=== PATIENT | male | born 1965 | race Caucasian/White ===

== ENCOUNTER 2017-10-28 15:50 | Observation (INO) | payer BC, SELFPAY ==
--- OUTSIDE RECORDS SUMMARY | 2017-10-28 15:52 | XMS REPORT | Continuity of Care Document ---
:1965 Author Organization [facility] Care Team Providers Name Role Phone DR CARLOS ENRIQUE BERG Admitting Physician DR CARLOS ENRIQUE BERG Attending Physician Hospital Admission Diagnosis Code Admission Diagnosis Date PREDIABETES Social History Element Code Description Smoking Start Date End Date Description Status Code System Smoking Status [id number] Current every day SNOMED-CT smoker Problems No data in the system Medications SNOMED CT Description [id number] Drug Treatment Unknown Allergies No Allergy Data in the System Results No data in the system Vital Signs No data in the system Plan of Care No data in the system Procedures No data in the system Encounters Date Code Diagnosis Status (ICD10) - R7303 PREDIABETES Active Immunizations No data in the system Functional Status No data in the system Hospital Discharge Instructions No data in the system
[2017-10-28] MEDS ORDERED: NA CHLORIDE 0.9% 1,000 ML ONE ×2 (17:16→18:38)
[2017-10-28 17:27] LABS: Absolute Lymphocytes (CBC) 2.3 K/uL (0.7-4.9); Absolute Monocytes 0.7 K/uL (0.1-1.3); Absolute Neutrophil 4.1 K/uL (1.8-8.0); Basophils % 0.4 % (0-1.3); Hematocrit 44.5 % (39.6-49.0); Lymphocytes % 31.6 % (15.3-44.8); MCH 28.5 pg (27.0-35.0); MCV 83.2 fL (80-100); MPV 8.4 fL (7.6-11.3); Monocytes % 9.6 % (3.3-12.3); RBC Red Blood Cell Count 5.35 M/uL (4.33-5.43)
[2017-10-28 17:42] LABS: Albumin 4.3 g/dL (3.4-5.0); Bilirubin Direct 0.2 mg/dL (0-0.2); Bilirubin Total 0.5 mg/dL (0.2-1.0); Potassium 3.5 mmol/L (3.5-5.1)
--- NOTE | 2017-10-28 17:44 | RAD REPORT ---
EXAM DESCRIPTION: CT - Head Brain Wo Cont - 10/28/2017 5:38 pm CLINICAL HISTORY: Syncope COMPARISON: None. TECHNIQUE: Axial 5 mm thick images of the head were obtained without IV contrast. All CT scans are performed using dose optimization technique as appropriate and may include automated exposure control or mA/KV adjustment according to patient size. FINDINGS: No intracranial hemorrhage, mass, edema or shift of mid-line structures. No acute infarcti on changes seen. No abnormal extra-axial fluid collections. Ventricles are normal. Mastoid air cells and visualized portions of the paranasal sinuses are clear. No acute bony findings. IMPRESSION: Negative non-contrast CT head examination.
--- NOTE | 2017-10-28 18:14 | EDPHYS ---
Physician Documentation [facility] Name: Wojciech Jacobs Age: 51 yrs Sex: Male : 1965 Arrival Date: 10/28/2017 Time: 15:54 Bed 13 Private MD: Out, [facility] ED Physician Uriah Denise HPI: 10/28 17:00 This 51 yrs old Male presents to ER via Ambulatory with complaints of pm1 Dizziness, Near Syncope. 17:00 The patient presents with feeling faint. Onset: The symptoms/episode began/occurred 2 pm1 day(s) ago. Context: occurred at work, occurred while the patient was working, just prior to the episode the patient experienced no apparent symptoms. Modifying factors: The symptoms are alleviated by rest. 17:00 Associated signs and symptoms: Pertinent negatives: abdominal pain, chest pain, nausea, pm1 palpitations, shortness of breath, vomiting. Severity of symptoms: in the emergency department the symptoms have resolved. The patient has not experienced similar symptoms in the past. The patient has been recently seen by a physician: the patient's primary care provider, 3 weeks ago for wellness check. Had labs done and all within normal limits. 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 Patient believes that he almost fainted because all he recalls is him sitting on the ground with his coworkers holding him up from behind and another one handing him a bottled water. Patient did not have any chest pain, shortness of breath, or any dizziness prior to syncopal or near syncopal event. Patient was sent home and on Sunday and Sunday, the patient drank a total of two cases of bottled water because he felt that he might have been dehydrated. Patient attempted to work again today but he did not have the energy to pull the cables. He was sent to the ER by his employer for evaluation. 17:00 Patient has no current complaints except for generalized muscle aches. pm1 Historical: - Allergies: 16:23 Motrin (Rash); aj1 16:23 Naproxen (Anaphylaxis); aj1 - Home Meds: 16:23 Lisinopril Oral [Active]; Metformin Oral [Active]; atorvastatin 10 mg oral tab aj1 [Active]; Metoprolol Tartrate Oral [Active]; HCTZ [Active]; - PMHx: 16:23 Hypertension; pre-diabetic; aj1 - Immunization history:: Flu vaccine is up to date. - Social history:: Smoking status: Patient uses tobacco products, smokes one pack cigarettes per day. - Ebola Screening: : Patient denies travel to an Ebola-affected area in the 21 days before illness onset. ROS: 17:00 Constitutional: Negative for fever, chills, and weight loss, Eyes: Negative for injury, pm1 pain, redness, and discharge, ENT: Negative for injury, pain, and discharge, Neck: Negative for injury, pain, and swelling, Cardiovascular: Negative for chest pain, palpitations, and edema, Respiratory: Negative for shortness of breath, cough, wheezing, and pleuritic chest pain, Abdomen/GI: Negative for abdominal pain, nausea, vomiting, diarrhea, and constipation, Back: Negative for injury and pain, : Negative for injury, bleeding, discharge, and swelling, MS/Extremity: Negative for injury and deformity, Skin: Negative for injury, rash, and discoloration, Neuro: Negative for headache, weakness, numbness, tingling, and seizure. Exam: 17:00 Constitutional: This is a well developed, well nourished patient who is awake, alert, pm1 and in no acute distress. Head/Face: Normocephalic, atraumatic. Eyes: Pupils equal round and reactive to light, extra-ocular motions intact. Lids and lashes normal. Conjunctiva and sclera are non-icteric and not injected. Cornea within normal limits. Periorbital areas with no swelling, redness, or edema. ENT: Nares patent. No nasal discharge, no septal abnormalities noted. Tympanic membranes are normal and external auditory canals are clear. Oropharynx with no redness, swelling, or masses, exudates, or evidence of obstruction, uvula midline. Mucous membranes moist. Neck: Trachea midline, no thyromegaly or masses palpated, and no cervical lymphadenopathy. Supple, full range of motion without nuchal rigidity, or vertebral point tenderness. No Meningismus. Chest/axilla: Normal chest wall appearance and motion. Nontender with no deformity. No lesions are appreciated. Cardiovascular: Regular rate and rhythm with a normal S1 and S2. No gallops, murmurs, or rubs. Normal PMI, no JVD. No pulse deficits. Respiratory: Lungs have equal breath sounds bilaterally, clear to auscultation and percussion. No rales, rhonchi or wheezes noted. No increased work of breathing, no retractions or nasal flaring. Abdomen/GI: Soft, non-tender, with normal bowel sounds. No distension or tympany. No guarding or rebound. No evidence of tenderness throughout. Back: No spinal tenderness. No costovertebral tenderness. Full range of motion. Skin: Warm, dry with normal turgor. Normal color with no rashes, no lesions, and no evidence of cellulitis. MS/ Extremity: Pulses equal, no cyanosis. Neurovascular intact. Full, normal range of motion. 17:00 Neuro: Orientation: is normal, Cranial nerves: CN II- XII are normal as tested, Cerebellar function: normal finger to nose testing, Motor: is normal, moves all fours. Vital Signs: 16:23 BP 114 / 64; Pulse 61; Resp 18; Temp 97.4(TE); Pulse Ox 97% on R/A; Weight 128.82 kg aj1 (R); Height 6 ft. 0 in. (182.88 cm) (R); Pain 0/10; 17:16 BP 108 / 64; Pulse 54; Resp 19; Pulse Ox 99% on R/A; rb1 18:15 BP 110 / 58; Pulse 52; Resp 17; Pulse Ox 100% on R/A; rb1 19:11 BP 124 / 72; Pulse 60; Resp 18; Pulse Ox 100% on R/A; Pain 0/10; lp1 16:23 Body Mass Index 38.52 (128.82 kg, 182.88 cm) [facility] MDM: 16:34 Patient medically screened. pm1 18:12 Data reviewed: vital signs. Data interpreted: Pulse oximetry: on room air is 99 %. pm1 Interpretation: normal. Counseling: I had a detailed discussion with the patient and/or guardian regarding: the historical points, exam findings, and any diagnostic results supporting the discharge/admit diagnosis, lab results, radiology results, the need for further work-up and treatment in the hospital. 18:12 Physician consultation: Rolando Kamara DO was contacted at 18:12, regarding admission, pm1 and will see patient in ED. 10/28 16:57 Order name: Basic Metabolic Panel pm1 10/28 16:57 Order name: CBC with Diff pm1 10/28 16:57 Order name: CPK; Complete Time: 17:50 pm1 10/28 16:57 Order name: LFT's; Complete Time: 17:50 pm1 10/28 16:58 Order name: Basic Metabolic Panel; Complete Time: 17:50 EDMS 10/28 16:58 Order name: CBC with Automated Diff; Complete Time: 17:50 EDMS 10/28 16:57 Order name: EKG; Complete Time: 16:58 pm1 10/28 16:57 Order name: EKG - Nurse/Tech; Complete Time: 18:57 pm1 10/28 16:57 Order name: IV Saline Lock; Complete Time: 17:46 pm1 10/28 16:58 Order name: CT Head Brain wo Cont; Complete Time: 17:50 pm1 10/28 19:17 Order name: Urine Dipstick--Ancillary (enter results) 10/28 19:21 Order name: Urine Dipstick-Ancillary; Complete Time: 20:25 EDMS 10/28 16:57 Order name: Labs collected and sent; Complete Time: 17:46 pm1 10/28 16:57 Order name: Urine Dipstick-Ancillary (obtain specimen); Complete Time: 19:12 pm1 Administered Medications: 17:35 Drug: NS 0.9% 1000 ml Route: IV; Rate: 1000 ml; Site: right antecubital; rb1 18:40 Follow up: IV Status: Completed infusion rb1 18:35 Drug: NS 0.9% 1000 ml Route: IV; Rate: 1000 ml; Site: right antecubital; rb1 20:19 Follow up: IV Status: Completed infusion; IV Intake: 1000ml lp1 Disposition: 10/28/17 18:13 Hospitalization ordered by Rolando Kamara for Observation. Preliminary diagnosis are Acute kidney injury, Dehydration, Rhabdomyolysis. - Bed requested for Telemetry/MedSurg (observation). - Status is Observation. lp1 - Condition is Stable. - Problem is new. - Symptoms have improved. UTI on Admission? No Addendum: 11/06/2017 08:26 Co-signature as Attending Physician, Uriah Denise MD. r n Signatures: Dispatcher [employer] Mari Dubose RN RN [email or web address] Olga Bradley RN RN kl Uriah Denise MD MD rn Pena, Laura, RN RN lp1 Marcela Pierce, RN RN rb1 Scott Fuentes, LEANDRA FACILITATOR pm1 Corrections: (The following items were deleted from the chart) 10/28 19:49 18:13 Hospitalization Ordered by Rolando Kamara DO for Observation. Preliminary kl diagnosis is Acute kidney injury; Dehydration; Rhabdomyolysis. Bed requested for Telemetry/MedSurg (observation). Status is Observation. Condition is Stable. Problem is new. Symptoms have improved. UTI on Admission? No. pm1 21:02 19:49 10/28/2017 18:13 Hospitalization Ordered by Rolando Kamara DO for Observation. lp1 Preliminary diagnosis is Acute kidney injury; Dehydration; Rhabdomyolysis. Bed requested for Telemetry/MedSurg (observation). Status is Observation. Condition is Stable. Problem is new. Symptoms have improved. UTI on Admission? No. kl
--- NOTE | 2017-10-28 18:14 | ER ---
Nurse's Notes [facility] Name: Wojciech Jacobs Age: 51 yrs Sex: Male : 1965 Arrival Date: 10/28/2017 Time: 15:54 Bed 13 Private MD: Out, [facility] Diagnosis: Acute kidney injury;Dehydration;Rhabdomyolysis Presentation: 10/28 16:18 Presenting complaint: Patient states: He has a syncopal episode on Sunday. He was at [facility] [employer] work and then next thing he knew he was sitting on the ground with a co-worker helping him up and has been feeling light headed since then. Denies CP, SOB, palpitations. Transition of care: patient was not received from another setting of care. Onset of symptoms was October 26, 2017. Risk Assessment: Do you want to hurt yourself or someone else? Patient reports no desire to harm self or others. Initial Sepsis Screen: Does the patient meet any 2 criteria? No. Patient's initial sepsis screen is negative. Does the patient have a suspected source of infection? No. Patient's initial sepsis screen is negative. Care prior to arrival: None. 16:18 Method Of Arrival: Ambulatory [facility] 16:18 Acuity: BRIGITTE 3 aj1 Triage Assessment: 16:23 General: Appears in no apparent distress. comfortable, Behavior is calm, cooperative, aj1 appropriate for age. Pain: Denies pain. Neuro: Level of Consciousness is awake, alert, obeys commands. Cardiovascular: Denies chest pain, palpitations, shortness of breath, Patient's skin is warm and dry. Respiratory: Airway is patent Respiratory effort is even, unlabored, Respiratory pattern is regular, symmetrical. Historical: - Allergies: 16:23 Motrin (Rash); aj1 16:23 Naproxen (Anaphylaxis); aj1 - Home Meds: 16:23 Lisinopril Oral [Active]; Metformin Oral [Active]; atorvastatin 10 mg oral tab aj1 [Active]; Metoprolol Tartrate Oral [Active]; HCTZ [Active]; - PMHx: 16:23 Hypertension; pre-diabetic; aj1 - Immunization history:: Flu vaccine is up to date. - Social history:: Smoking status: Patient uses tobacco products, smokes one pack cigarettes per day. - Ebola Screening: : Patient denies travel to an Ebola-affected area in the 21 days before illness onset. Screenin:30 Abuse screen: Denies threats or abuse. Nutritional screening: No deficits noted. rb1 Tuberculosis screening: No symptoms or risk factors identified. Fall Risk None identified. Assessment: 16:30 General: Appears in no apparent distress. comfortable, obese, Behavior is calm, rb1 cooperative, Denies fever. Pain: Complains of pain in base of the skull Pain currently is 2 out of 10 on a pain scale. Neuro: Level of Consciousness is awake, alert, obeys commands, Oriented to person, place, time, situation, Reports headache base of skull. Cardiovascular: Capillary refill < 3 seconds is brisk in bilateral fingers. Respiratory: Airway is patent Respiratory effort is even, unlabored, Respiratory pattern is regular, symmetrical. GI: Reports nausea. : No signs and/or symptoms were reported regarding the genitourinary system. Derm: Skin is pink, warm \T\ dry. Musculoskeletal: Range of motion: intact in all extremities. 17:10 Reassessment: Patient appears in no apparent distress at this time. No changes from rb1 previously documented assessment. 18:20 Reassessment: Patient appears in no apparent distress at this time. Patient and/or rb1 family updated on plan of care and expected duration. Pain level reassessed. Patient is alert, oriented x 3, equal unlabored respirations, skin warm/dry/pink. Dr. Kamara is at pt. bedside. 19:11 Reassessment: Patient is alert, oriented x 3, equal unlabored respirations, skin lp1 warm/dry/pink. Patient aware of pending admission Patient states feeling better. 20:25 Reassessment: Ultrasound at bedside. lp1 Vital Signs: 16:23 BP 114 / 64; Pulse 61; Resp 18; Temp 97.4(TE); Pulse Ox 97% on R/A; Weight 128.82 kg aj1 (R); Height 6 ft. 0 in. (182.88 cm) (R); Pain 0/10; 17:16 BP 108 / 64; Pulse 54; Resp 19; Pulse Ox 99% on R/A; rb1 18:15 BP 110 / 58; Pulse 52; Resp 17; Pulse Ox 100% on R/A; rb1 19:11 BP 124 / 72; Pulse 60; Resp 18; Pulse Ox 100% on R/A; Pain 0/10; lp1 16:23 Body Mass Index 38.52 (128.82 kg, 182.88 cm) aj1 ED Course: 15:54 Patient arrived in ED. sb2 15:54 Out, of Town is Private Physician. sb2 16:21 Triage completed. aj1 16:23 Arm band placed on Patient placed in an exam room. aj1 16:26 Scott Fuentes NP is PHCP. pm1 16:26 Uriah Denise MD is Attending Physician. pm1 16:30 Patient has correct armband on for positive identification. Bed in low position. Call rb1 light in reach. Side rails up X 1. Pulse ox on. NIBP on. 16:41 Marcela Pierce, CAROLINE is Primary Nurse. rb1 17:35 Initial lab(s) drawn, by me, sent to lab. Inserted saline lock: 20 gauge in right em1 antecubital area, using aseptic technique. Blood collected. 17:38 CT Head Brain wo Cont In Process Unspecified. EDMS 17:38 CT completed. Patient tolerated procedure well. Patient moved back from CT. bq 18:12 Rolando Kamara DO is Hospitalizing Provider. pm1 19:00 Report given to CAROLINE Gaines. rb1 19:11 Urine collected: clean catch specimen, clear. lp1 19:12 No provider procedures requiring assistance completed. Patient admitted, IV remains in lp1 place. Administered Medications: 17:35 Drug: NS 0.9% 1000 ml Route: IV; Rate: 1000 ml; Site: right antecubital; rb1 18:40 Follow up: IV Status: Completed infusion rb1 18:35 Drug: NS 0.9% 1000 ml Route: IV; Rate: 1000 ml; Site: right antecubital; rb1 20:19 Follow up: IV Status: Completed infusion; IV Intake: 1000ml lp1 Intake: 20:19 IV: 1000ml; Total: 1000ml. lp1 Outcome: 18:13 Decision to Hospitalize by Provider. pm1 19:12 Condition: stable lp1 19:12 Instructed on the need for admit. 20:23 Admitted to Tele accompanied by nurse, via wheelchair, room 419, with chart, Report lp1 called to Aruna Prescott LVN 21:02 Patient left the ED. lp1 Signatures: Dispatcher [employer] Mari Dubose RN RN aj1 Ruthann Carroll Eric em1 Liana Hemphill RN RN lp1 Marcela Pierce RN RN rb1 Scott Fuentes, WORKERS' COMPENSATION CLAIMS SUPERVISOR WORKERS' COMPENSATION CLAIMS SUPERVISOR pm1 Asuncion Barraza sb2 Corrections: (The following items were deleted from the chart) 20:44 20:43 Reassessment: Ultrasound at bedside lp1 lp1
[2017-10-28] MEDS ORDERED: ACETAMINOPHEN 500 MG TAB PO PRN (18:30)
[2017-10-28] MEDS ORDERED: TRAMADOL HCL 50 MG TAB PO PRN (18:30)
[2017-10-28] MEDS ORDERED: ONDANSETRON 4 MG/2 ML VIAL IV PRN (18:30)
--- NOTE | 2017-10-28 18:43 | P.HP ---
Certification for Inpatient Patient admitted to: Observation With expected LOS: <2 Midnights Patient will require the following post-hospital care: None Practitioner: I am a practitioner with admitting privileges, knowledge of patient current condition, hospital course, and medical plan of care. Services: Services provided to patient in accordance with Admission requirements found in Title 42 Section 412.3 of the Code of Federal Regulations Patient History Date of Service: 10/28/17 Primary Care Provider: YESSI Garrido Reason for admission: Fatigue, presyncope History of Present Illness: 51-year-old male presented emergency room with fatigue and presyncope. Patient reports a history of diabetes, hypertension, hyperlipidemia and tobacco abuse. Patient takes multiple medications including metformin, lisinopril, hydrochlorothiazide, Lipitor and metoprolol. 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 He reports fatigue. On Sunday he was lifting heavy equipment on the boat that he works on. He had been working very hard. He felt like he was going to faint. He apparently sat down. He does not recall the couple of seconds while sitting down. His coworkers were asking if he was okay. He recalls telling his coworkers that he was okay. He did not fall or hurt himself. His coworkers ask if he wanted to get off the boat to get evaluated. He did not want to go. He decided to stay. He decided to rest. He rested for about 6 hr. He drank plan of fluids. The following day he worked. He did feel little bit tired. He reports hydrating with Gatorade. Today he was at work felt more lightheaded and fatigue. Some muscle cramping was noted. He was doing a job that usually takes him about 10 min but it was taking him more time and required more help. That is when he was told to stop and go to the emergency room for evaluation. In the ER he was evaluated. Initial blood pressure was slightly low with a systolic around 100-110. Bicarb 19, BUN of 77, creatinine 3.5 with a GFR of 19. Glucose 91. AST 39. CPK was elevated at 701. CT head was unremarkable. Patient was moving appropriately. Due to the nature the findings the patient was admitted for observation. He was given IV fluids in the emergency room. When I saw the patient ER, appeared stable. He went to go home. He understand the risks but eventually decided to stay. He reports that he last saw his PCP about 3 weeks ago. He had normal lab at that time. He recalls his A1c being about 6.4. - Past Medical/Surgical History Diabetic: Yes -: Diabetes mellitus type 2 -: Hypertension -: Hyperlipidemia -: Tobacco abuse Past Surgical History: Patient denies surgical history Psychosocial/ Personal History: The patient is . He has 1 child. He works on a boat - Family History Father -: Hypertension Mother -: Diabetes, Stroke - Social History Smoking Status: Heavy Tobacco smoker (>10 cigarettes/day) Counseled patient to stop smoking for: less than 10 minutes Smoking therapy provided: Yes Patient receptive to therapy: No Alcohol use: No CD- Drugs: No Caffeine use: Yes Place of Residence: Home Review of Systems General: Weakness, Malaise, As per HPI Eyes: Unremarkable ENT: Unremarkable Respiratory: As per HPI Cardiovascular: Light Headedness, As per HPI Gastrointestinal: Nausea, As per HPI Genitourinary: Unremarkable Musculoskeletal: As per HPI Integumentary: Unremarkable Neurological: Weakness, As per HPI Lymphatics: Unremarkable Physical Examination - Physical Exam General: Alert, In no apparent distress, Oriented x3, Cooperative HEENT: Atraumatic, Normocephalic, PERRLA, Other (Dry mucous membranes) Neck: Supple, No Thyromegaly Respiratory: Clear to auscultation bilaterally, Normal air movement Cardiovascular: Normal pulses, Regular rate/rhythm Gastrointestinal: Normal bowel sounds, Soft and benign, Non-distended, No tenderness, No masses, No rebound, No guarding Musculoskeletal: No contractures, No erythema, No tenderness, No warmth Integumentary: No tenderness/swelling, No erythema, No warmth, No cyanosis Neurological: Normal speech, Normal strength at 5/5 x4 extr, Normal tone, Normal affect Lymphatics: No axilla or inguinal lymphadenopathy - Studies Laboratory Data (last 24 hrs) 10/28/17 17:15: WBC 7.2, Hgb 15.2, Hct 44.5, Plt Count 277 10/28/17 17:15: Sodium 137, Potassium 3.5, BUN 77 H, Creatinine 3.50 H, Glucose 91, Total Bilirubin 0.5, AST 39 H, ALT 50, Alkaline Phosphatase 109 Assessment and Plan - Problems (Diagnosis) (1) Pre-syncope Current Visit: Yes Status: Acute Plan: Presyncope, fatigue likely from rhabdomyolysis and dehydration. Acute renal injury noted likely compromise from JOHAN-inhibitor, hydrochlorothiazide and metformin. Will hold all of these medications. Will provide IV fluids. Will reassess tomorrow. Will monitor CPK. Will check echocardiogram, carotid Doppler. CT of the head unremarkable. Will also order renal ultrasound. Will adjust blood pressure medication. Will provide sliding scale. Anticipate improvement with hydration. Likely discharge tomorrow. (2) Dehydration Current Visit: Yes Status: Acute Plan: Continue with IV fluid hydration. Will monitor closely. (3) Rhabdomyolysis Current Visit: Yes Status: Acute Plan: Likely from dehydration. Will continue with IV fluids. Will reassess tomorrow. Qualifiers: Rhabdomyolysis type: non-traumatic Qualified Code(s): M62.82 - Rhabdomyolysis (4) Acute renal injury Current Visit: Yes Status: Acute Plan: Likely from rhabdomyolysis and dehydration. Continue as above. Will check renal ultrasound. Will hold JOHAN-inhibitor, diuretic therapy and metformin. (5) Hypertension Current Visit: Yes Status: Chronic Plan: We will hold hydrochlorothiazide, lisinopril. Will decrease metoprolol. Will monitor and adjust appropriately. Qualifiers: Hypertension type: essential hypertension Qualified Code(s): I10 - Essential (primary) hypertension (6) Diabetes mellitus Current Visit: Yes Status: Chronic Plan: Patient reports recent A1c of 6.4. Will provide sliding scale. Will hold metformin due to rhabdomyolysis and acute renal injury. Qualifiers: Diabetes mellitus type: type 2 Diabetes mellitus dress designer insulin use: without dress designer use Diabetes mellitus complication status: with other specified complication Qualified Code(s): E11.69 - Type 2 diabetes mellitus with other specified complication (7) Hyperlipidemia Current Visit: Yes Status: Chronic Plan: Will hold Lipitor at this time. Will check fasting lipid panel. Qualifiers: Hyperlipidemia type: unspecified Qualified Code(s): E78.5 - Hyperlipidemia , unspecified (8) Tobacco abuse Current Visit: Yes Status: Chronic Plan: Will provide tobacco cessation. Patient may require nicotine patch. Discharge Plan: Home Plan to discharge in: 24 Hours - Advance Directives Does patient have a Living Will: No Does patient have a Durable POA for Healthcare: No - Code Status/Comfort Care Code Status Assessed: Yes Time Spent Managing Pts Care (In Minutes): 55
[2017-10-28 19:21] LABS: Urine Blood NEGATIVE (NEG); Urine Glucose NEGATIVE (NEG); Urine Protein NEGATIVE (NEG); Urine pH 5.5 (5.0-7.0)
[2017-10-28] MEDS: INSULIN -REGULAR HUMAN 50 UNIT/0.5 ML ML SQ SCH (21:00)
[2017-10-28] MEDS: PANTOPRAZOLE 40MG TABLET PO SCH (21:41)
[2017-10-28] MEDS: METOPROLOL TAR 25 MG TAB PO SCH (21:42)
[2017-10-28] MEDS: ENOXAPARIN 30 MG/0.3 ML SQ SCH (21:45)
[2017-10-28] MEDS: NA CHLORIDE 0.9% 1,000 ML IV SCH (21:45)
[2017-10-28 21:47] VITALS: BMI 36.5
--- NOTE | 2017-10-28 22:45 | RAD REPORT ---
EXAM DESCRIPTION: US - Renal Ultrasound-Complete - 10/28/2017 9:03 pm CLINICAL HISTORY: Acute renal failure COMPARISON: None. FINDINGS: The right kidney measures 11.9 x 6.1 x 6.1 cm. The left kidney measures 11.1 x 5.0 x 5.7 cm. Renal cortical thickness and echogenicity are normal. No hydronephrosis. In the upper pole right kidney a 2.6 centimeter oval hypoechoic mass is present. Detail is somewhat limited by body habitus. Benign cyst is the most likely etiology. No bladder wall thickening or mass. No intraluminal stone or mass. IMPRESSION: No hydronephrosis or suspicious renal mass. A 2.6 cm oval hypoechoic mass upper pole right kidney is most likely a simple cyst.
--- NOTE | 2017-10-28 22:45 | RAD REPORT ---
EXAM DESCRIPTION: JANE Grimes CP - 10/28/2017 9:03 pm CLINICAL HISTORY: Syncope COMPARISON: None. TECHNIQUE: Real-time sonographic evaluation of both carotid systems was performed. Grayscale and Dop pler interrogation was performed with waveform tracing bilaterally. FINDINGS: Normal high resistance waveforms are noted in both external carotid arteries. The common c arotid arteries and internal carotid arteries show normal low resistance waveforms. Mild bulb plaquing changes are present. No visual evidence for significant luminal narrowing. Peak sy stolic and end diastolic velocity values and the ICA/CCA ratios are in the non-hemodynamically signif icant range. Antegrade flow seen in both vertebral arteries. Velocity values and ratios were recorded and are retained in the patient's imaging records. IMPRESSION: No significant atherosclerotic changes noted. No evidence of a hemodynamically significant stenosis.
[2017-10-29] MEDS: NA CHLORIDE 0.9% 1,000 ML IV SCH (03:03)
[2017-10-29 05:01] LABS: Absolute Monocytes 0.6 K/uL (0.1-1.3); Absolute Neutrophil 2.6 K/uL (1.8-8.0); Basophils % 0.6 % (0-1.3); Hematocrit 39.1 % (39.6-49.0); Lymphocytes % 36.4 % (15.3-44.8); MCH 28.6 pg (27.0-35.0); MPV 8.5 fL (7.6-11.3); Monocytes % 11.5 % (3.3-12.3); RBC Red Blood Cell Count 4.65 M/uL (4.33-5.43)
[2017-10-29 05:37] LABS: ALT/SGPT 42 U/L (12-78); AST/SGOT 34 U/L (15-37); Albumin 3.6 g/dL (3.4-5.0); Alkaline Phosphatase 91 U/L (45-117); BUN Blood Urea Nitrogen 68 mg/dL (7-18); Bicarbonate 21 mmol/L (21-32); Bilirubin Total 0.3 mg/dL (0.2-1.0); Creatine Phosphokinase 507 U/L (39-308); Glucose Level 128 mg/dL (74-106); HDL Cholesterol 26 mg/dL (40-60); LDL Cholesterol, Calculated ND (<130); Magnesium 2.4 mg/dL (1.8-2.4); Potassium 3.6 mmol/L (3.5-5.1); Protein, Total 6.5 g/dL (6.4-8.2); Sodium Level 143 mmol/L (136-145)
--- NOTE | 2017-10-29 05:41 | EKG ---
Test Date: 2017-10-28 Test Time: 17:07:58 Systems Technician: MORIAH MEASUREMENT RESULTS: Intervals: Rate: 52 TN: 172 QRSD: 102 QT: 428 QTc: 398 [place]: P: 39 TN: 172 QRS: 41 T: 35 INTERPRETIVE STATEMENTS: Sinus bradycardia Otherwise normal ECG No previous ECG available for comparison Electronically Signed On 10-29-17 05:40:41 CDT by Shayan Curiel
[2017-10-29] MEDS: METOPROLOL TAR 25 MG TAB PO SCH ×2 (06:08→17:34)
[2017-10-29 06:20] LABS: LDL, Direct 101 mg/dL (100-129)
[2017-10-29] MEDS ORDERED: POTASSIUM 25 MEQ EFFERV TAB PO ONE (06:30)
[2017-10-29] MEDS: INSULIN -REGULAR HUMAN 50 UNIT/0.5 ML ML SQ SCH ×4 (07:30→20:11)
[2017-10-29] MEDS: PANTOPRAZOLE 40MG TABLET PO SCH (09:55)
[2017-10-29] MEDS: NACHLORIDE 0.45% 1,000 ML IV SCH ×4 (09:56→20:16)
[2017-10-29] MEDS: ENOXAPARIN 30 MG/0.3 ML SQ SCH (09:56)
--- NOTE | 2017-10-29 10:30 | P.PN ---
Subjective Date of Service: 10/29/17 Primary Care Provider: YESSI Garrido Chief Complaint: Fatigue, presyncope Subjective: Improving (Patient feels better. Patient desires to go home.) Physical Examination - Vital Signs Temperature: 97.6 F Blood Pressure: 126/65 Pulse: 59 Respirations: 18 Pulse Ox (%): 98 - Physical Exam General: Alert, In no apparent distress, Oriented x3, Cooperative HEENT: Atraumatic Neck: Supple Respiratory: Clear to auscultation bilaterally, Normal air movement Cardiovascular: Normal pulses, Regular rate/rhythm Gastrointestinal: Normal bowel sounds, Soft and benign, Non-distended, No tenderness, No masses, No rebound, No guarding Musculoskeletal: No erythema, No tenderness, No warmth Integumentary: No tenderness/swelling, No erythema, No warmth, No cyanosis Neurological: Normal speech, Normal strength at 5/5 x4 extr, Normal tone, Normal affect Lymphatics: No axilla or inguinal lymphadenopathy - Studies Laboratory Data (last 24 hrs) 10/28/17 17:15: WBC 7.2, Hgb 15.2, Hct 44.5, Plt Count 277 10/28/17 17:15: Sodium 137, Potassium 3.5, BUN 77 H, Creatinine 3.50 H, Glucose 91, Total Bilirubin 0.5, AST 39 H, ALT 50, Alkaline Phosphatase 109 Medications List Reviewed: Yes Assessment & Plan - Problems (Diagnosis) (1) Pre-syncope Onset Date: 10/29/17 Current Visit: Yes Status: Acute Plan: Presyncope, fatigue likely from rhabdomyolysis and dehydration. Acute renal injury noted likely compromised from JOHAN-inhibitor, hydrochlorothiazide and metformin. Will continue to hold all of these medications. Will continue with IV fluids. Renal ultrasound shows 2.6 cm right upper lobe cysts likely benign. Patient feels better. Carotid Doppler negative. Renal function still compromise. Will recheck BMP later today. Consider discharge today or tomorrow. Likely tomorrow if no significant improvement in renal function. Patient overall improved. I will turn the service over to Dr. Nuñez tomorrow. I will go over the plan of care with her. (2) Dehydration Onset Date: 10/29/17 Current Visit: Yes Status: Acute Plan: Continue with IV fluid hydration. Will monitor closely. (3) Rhabdomyolysis Onset Date: 10/29/17 Current Visit: Yes Status: Acute Plan: Likely from dehydration. This has improved with IV fluids. Will continue to monitor Qualifiers: Rhabdomyolysis type: non-traumatic Qualified Code(s): M62.82 - Rhabdomyolysis (4) Acute renal injury Onset Date: 10/29/17 Current Visit: Yes Status: Acute Plan: Likely from rhabdomyolysis and dehydration. Continue with IV fluids. Will continue to hold JOHAN-inhibitor, metformin and diuretic therapy. Possible discharge later today if renal function improved. But likely home tomorrow (5) Hypertension Onset Date: 10/29/17 Current Visit: Yes Status: Chronic Plan: Will continue to hold hydrochlorothiazide, lisinopril. Continue with metoprolol. Blood pressure controlled. Qualifiers: Hypertension type: essential hypertension Qualified Code(s): I10 - Essential (primary) hypertension (6) Diabetes mellitus Onset Date: 10/29/17 Current Visit: Yes Status: Chronic Plan: Patient reports recent A1c of 6.4. Will provide sliding scale. Will hold metformin due to rhabdomyolysis and acute renal injury. Qualifiers: Diabetes mellitus type: type 2 Diabetes mellitus snf insulin use: without snf use Diabetes mellitus complication status: with other specified complication Qualified Code(s): E11.69 - Type 2 diabetes mellitus with other specified complication (7) Hyperlipidemia Onset Date: 10/29/17 Current Visit: Yes Status: Chronic Plan: Will hold Lipitor at this time. Patient likely requires Lovaza and fenofibrate instead of Lipitor at discharge. Qualifiers: Hyperlipidemia type: unspecified Qualified Code(s): E78.5 - Hyperlipidemia , unspecified (8) Tobacco abuse Onset Date: 10/29/17 Current Visit: Yes Status: Chronic Plan: Will provide tobacco cessation. Patient may require nicotine patch. Discharge Plan: Home Plan to discharge in: 24 Hours Time Spent Managing Pts Care (In Minutes): 55
--- NOTE | 2017-10-29 11:28 | ECHO ---
HEIGHT: 6 ft 2 in WEIGHT: 284 lb 9.6 oz DATE OF STUDY: 10/29/[address]: Rolando Kamara DO 2-DIMENSIONAL: YES M.MODE: YES DOPPLER: YES COLOR FLOW: YES TDS: NO PORTABLE: NO DEFINITY: NO BUBBLE STUDY: NO DIAGNOSIS: PRESYNCOPE CARDIAC HISTORY: CATHERIZATION: SURGERY: PROSTHETIC VALVE: PACEMAKER: MEASUREMENTS (cm) DIASTOLIC (NORMALS) SYSTOLIC (NORMALS) IVSd 1.1 (0.6-1.2) LA Diam 4.4 (1.9-4.0) LVEF 54% LVIDd 4.9 (3.5-5.7) LVIDs 3.5 (2.0-3.5) %FS 28% LVPWd 1.2 (0.6-1.2) Ao Diam 3.2 (2.0-3.7) 2 DIMENSIONAL ASSESSMENT: RIGHT ATRIUM: NORMAL LEFT ATRIUM: DILATED RIGHT VENTRICLE: NORMAL LEFT VENTRICLE: NORMAL TRICUSPID VALVE: NORMAL MITRAL VALVE: NORMAL PULMONIC VALVE: NORMAL AORTIC VALVE: NORMAL PERICARDIAL EFFUSION: NONE AORTIC ROOT: NORMAL LEFT VENTRICULAR WALL MOTION: DOPPLER/COLOR FLOW: PHYSIOLOGIC TRICUPSID REGURGITATION. NORMAL RIGHT VENTRICULAR SYSTOLIC PRESSURE. COMMENTS: NORMAL LEFT VENTRICULAR EJECTION FRACTION. DILATED LEFT ATRIUM, OTHERWISE NORMAL 2D ECHOCARDIOGRAM. PHYSIOLOGIC TRICUPSID REGURGITATION TECHNOLOGIST: Duane FISH
[2017-10-30] MEDS: NACHLORIDE 0.45% 1,000 ML IV SCH ×2 (03:29→10:40)
[2017-10-30 03:46] VITALS: O2SAT 100
[2017-10-30 04:16] LABS: Absolute Lymphocytes (CBC) 1.8 K/uL (0.7-4.9); Absolute Monocytes 0.5 K/uL (0.1-1.3); Basophils % 0.5 % (0-1.3); Hematocrit 37.7 % (39.6-49.0); Lymphocytes % 40.2 % (15.3-44.8); MCH 28.6 pg (27.0-35.0); MCV 82.2 fL (80-100); MPV 8.5 fL (7.6-11.3); Monocytes % 10.6 % (3.3-12.3); RBC Red Blood Cell Count 4.58 M/uL (4.33-5.43)
[2017-10-30 04:29] LABS: Albumin 3.5 g/dL (3.4-5.0); Bilirubin Total 0.3 mg/dL (0.2-1.0); Magnesium 1.7 mg/dL (1.8-2.4); Potassium 3.8 mmol/L (3.5-5.1); Protein, Total 6.5 g/dL (6.4-8.2)
[2017-10-30] MEDS: METOPROLOL TAR 25 MG TAB PO SCH (05:09)
[2017-10-30] MEDS ORDERED: POTASSIUM 25 MEQ EFFERV TAB PO ONE (05:13)
[2017-10-30] MEDS ORDERED: MAGNESIUM SULFATE 1 gm IVPB 1 GM/100 ML BAG IV ONE (06:13)
[2017-10-30] MEDS: INSULIN -REGULAR HUMAN 50 UNIT/0.5 ML ML SQ SCH ×2 (07:30→11:30)
[2017-10-30] MEDS: PANTOPRAZOLE 40MG TABLET PO SCH (07:45)
[2017-10-30] MEDS: ENOXAPARIN 30 MG/0.3 ML SQ SCH (07:53)
[2017-10-30 13:09] VITALS: BP 136/84; TEMP 97.4
--- NOTE | 2017-10-30 17:35 | P.DS ---
Admission Date: 10/28/17 Discharge Date: 10/30/17 Primary Care Provider: YESSI Garrido Disposition: ROUTINE DISCHARGE Discharge Condition: GOOD Reason for Admission: Fatigue, presyncope - Problems (1) Acute renal injury Onset Date: 10/29/17 Status: Resolved (2) Dehydration Onset Date: 10/29/17 Status: Resolved (3) Pre-syncope Onset Date: 10/29/17 Status: Resolved (4) Rhabdomyolysis Onset Date: 10/29/17 Status: Resolved Qualifiers: Rhabdomyolysis type: non-traumatic Qualified Code(s): M62.82 - Rhabdomyolysis (5) Diabetes mellitus Onset Date: 10/29/17 Status: Chronic Qualifiers: Diabetes mellitus type: type 2 Diabetes mellitus terminal block assembler insulin use: without terminal block assembler use Diabetes mellitus complication status: with other specified complication Qualified Code(s): E11.69 - Type 2 diabetes mellitus with other specified complication (6) Hyperlipidemia Onset Date: 10/29/17 Status: Chronic Qualifiers: Hyperlipidemia type: unspecified Qualified Code(s): E78.5 - Hyperlipidemia , unspecified (7) Hypertension Onset Date: 10/29/17 Status: Chronic Qualifiers: Hypertension type: essential hypertension Qualified Code(s): I10 - Essential (primary) hypertension (8) Tobacco abuse Onset Date: 10/29/17 Status: Chronic Brief History of Present Illness: 51-year-old male presented emergency room with fatigue and presyncope. Patient reports a history of diabetes, hypertension, hyperlipidemia and tobacco abuse. Patient takes multiple medications including metformin, lisinopril, hydrochlorothiazide, Lipitor and metoprolol. 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 He reports fatigue. On Sunday he was lifting heavy equipment on the boat that he works on. He had been working very hard. He felt like he was going to faint. He apparently sat down. He does not recall the couple of seconds while sitting down. His coworkers were asking if he was okay. He recalls telling his coworkers that he was okay. He did not fall or hurt himself. His coworkers ask if he wanted to get off the boat to get evaluated. He did not want to go. He decided to stay. He decided to rest. He rested for about 6 hr. He drank plan of fluids. The following day he worked. He did feel little bit tired. He reports hydrating with Gatorade. Today he was at work felt more lightheaded and fatigue. Some muscle cramping was noted. He was doing a job that usually takes him about 10 min but it was taking him more time and required more help. That is when he was told to stop and go to the emergency room for evaluation. In the ER he was evaluated. Initial blood pressure was slightly low with a systolic around 100-110. Bicarb 19, BUN of 77, creatinine 3.5 with a GFR of 19. Glucose 91. AST 39. CPK was elevated at 701. CT head was unremarkable. Patient was moving appropriately. Due to the nature the findings the patient was admitted for observation. He was given IV fluids in the emergency room. When I saw the patient ER, appeared stable. He went to go home. He understand the risks but eventually decided to stay. He reports that he last saw his PCP about 3 weeks ago. He had normal lab at that time. He recalls his A1c being about 6.4 Hospital Course: Overall during the hospital stay patient remained stable The patient was initially admitted to the hospital for rhabdomyolysis, dehydration and acute kidney injury. Patient was started on IV fluids here in the hospital. Patient was doing well overall post admission. Patient's kidney injury resolved as his CPK was trending down. Day 3 of hospitalization. Patient had resolution of his symptoms and thus was discharged home under stable condition. Patient was asked to continue to be indoors for next 1 week. Patient was also asked to stop taking his hydrochlorothiazide and lisinopril for 1 week. Patient was asked to follow up with primary care did provider before resuming hydrochlorothiazide and lisinopril. Patient's BUN and creatinine resolved to normal levels here in the hospital and thus was discharged home under stable condition. Vital Signs/Physical Exam: Temp Pulse Resp BP Pulse Ox 97.4 F 57 16 136/84 100 10/30/17 12:00 10/30/17 12:00 10/30/17 12:00 10/30/17 12:10/30/17 12:00 General: Alert, In no apparent distress HEENT: Atraumatic, PERRLA, EOMI Neck: Supple, JVD not distended Respiratory: Clear to auscultation bilaterally, Normal air movement Cardiovascular: Regular rate/rhythm, Normal S1 S2 Gastrointestinal: Normal bowel sounds, No tenderness Musculoskeletal: No tenderness Integumentary: No rashes Neurological: Normal speech, Normal tone, Normal affect Lymphatics: No axilla or inguinal lymphadenopathy Laboratory Data at Discharge: WBC 4.4 K/uL (4.3-10.9) D 10/30/17 03:37 Hgb 13.1 g/dL (13.6-17.9) L 10/30/17 03:37 Hct 37.7 % (39.6-49.0) L 10/30/17 03:37 Plt Count 192 K/uL (152-406) 10/30/17 03:37 Sodium 143 mmol/L (136-145) 10/30/17 03:37 Potassium 3.8 mmol/L (3.5-5.1) 10/30/17 03:37 BUN 39 mg/dL (7-18) H 10/30/17 03:37 Creatinine 1.30 mg/dL (0.55-1.3) 10/30/17 03:37 Glucose 104 mg/dL (74-106) 10/30/17 03:37 Magnesium 1.7 mg/dL (1.8-2.4) L D 10/30/17 03:37 Total Bilirubin 0.3 mg/dL (0.2-1.0) 10/30/17 03:37 AST 28 U/L (15-37) 10/30/17 03:37 ALT 42 U/L (12-78) 10/30/17 03:37 Alkaline Phosphatase 80 U/L (45-117) 10/30/17 03:37 Triglycerides 408 mg/dL (<150) H 10/29/17 04:39 Cholesterol 161 mg/dL (<200) 10/29/17 04:39 LDL Cholesterol Direct 101 mg/dL (100-129) 10/29/17 04:39 HDL Cholesterol 26 mg/dL (40-60) L 10/29/17 04:39 Cholesterol/HDL Ratio 6.19 10/29/17 04:39 Home Medications: Atorvastatin Calcium 10 mg PO DAILY 10/28/17 Lisinopril 40 mg PO DAILY 10/28/17 Metformin HCl [Metformin HCl ER] 500 mg PO DAILY 10/28/17 Metoprolol Tartrate [Lopressor*] 50 mg PO DAILY 10/28/17 hydroCHLOROthiazide [Hydrochlorothiazide*] 12.5 mg PO DAILY 10/28/17 Patient Discharge Instructions: Please f.u with PCP and Nephrology In 1 to 2 week post discharge. You were Admitted to the hospital for Rhabdomyolsis and was found to have Acute Kidney injury secondary to Dehydration. You are now recovered. Resume Home medication except Hydrochlorothaizide and Lisinopril. You can resume those two medication after 1 week. Diet: Regular Activity: Ad cb
== END 2017-10-30 13:50 | disposition home or self-care (01) ==
LOC: ER 15:50 → ERHOLD 18:21 → 4TH 20:24
PROVIDERS: ADMIT Family Medicine; ATTEND Family Medicine
DX: M62.82 Rhabdomyolysis (principal); E86.0 Dehydration; N17.9 Acute kidney failure, unspecified; R55 Syncope and collapse; E11.9 Type 2 diabetes mellitus without complications; I10 Essential (primary) hypertension; E78.5 Hyperlipidemia, unspecified; F17.210 Nicotine dependence, cigarettes, uncomplicated
CPT/HCPCS: 36415; 70450; 76770; 80048; 80053; 80061; 80076; 81003; 82550; 82962; 83735; 84439; 84443; 85025; 93005; 93306; 93880; 96360; 96361; 99285; G0378; J1650; J3475; J7030